=== PATIENT | female | born 1980 | race African-American/Black ===

== ENCOUNTER 2017-06-28 08:55 | Emergency (ER) | payer OTHER ==
--- NOTE | 2017-06-28 09:24 | ER Document Report ---
ED Extremity Problem, Lower - General Chief Complaint: Knee Pain Stated Complaint: FALL KNEE PAIN Time Seen by Provider: 06/28/17 09:14 Notes: 36 yo female c/o pain to right knee x 1 day. pt works at [employer], was stocking shelves, holding a box, slipped on a piece of cardboard and fell on to right knee. painful to walk. no previous injury to knee. denies other injury at this time TRAVEL OUTSIDE OF THE [place] IN LAST 30 DAYS: No - HPI Patient complains to provider of: Injury, Pain Location: Knee - right Occurred: Just prior to arrival Where: Work Onset/Duration: Sudden Quality of pain: Sharp Pain Level: 4 Context: Fell Recent injury: Yes Exacerbated by: Movement - flexion, Walking Relieved by: Nothing - Related Data Allergies/Adverse Reactions: Penicillins Allergy (Verified 06/28/17 08:59) Past Medical History - General Information source: Patient - Social History Smoking Status: Never Smoker Frequency of alcohol use: Occasional Drug Abuse: None Lives with: Family Family History: Reviewed & Not Pertinent - Medical History Medical History: Negative Renal/ Medical History: Denies: Hx Peritoneal Dialysis Review of Systems - Review of Systems Constitutional: No symptoms reported EENT: No symptoms reported Cardiovascular: No symptoms reported Respiratory: No symptoms reported Gastrointestinal: No symptoms reported Genitourinary: No symptoms reported Female Genitourinary: No symptoms reported Musculoskeletal: See HPI Skin: No symptoms reported Hematologic/Lymphatic: No symptoms reported Neurological/Psychological: No symptoms reported Physical Exam - Vital signs Vitals: Temp Pulse Resp BP Pulse Ox 98.4 F 86 20 130/80 H 99 06/28/17 08:59 06/28/17 08:59 06/28/17 08:59 06/28/17 08:59 06/28/17 08:59 Interpretation: Normal - General General appearance: Appears well, Alert - HEENT Head: Normocephalic, Atraumatic Eyes: Normal Pupils: PERRL - Respiratory Respiratory status: No respiratory distress Chest status: Nontender Breath sounds: Normal Chest palpation: Normal - Cardiovascular Rhythm: Regular Heart sounds: Normal auscultation Murmur: No - Abdominal Inspection: Normal Distension: No distension Bowel sounds: Normal Tenderness: Nontender Organomegaly: No organomegaly - Back Back: Normal, Nontender - Extremities General upper extremity: Normal inspection, Nontender, Normal color, Normal ROM , Normal temperature Hip: Normal, Nontender Knee: Tender - tenderness just under patellar, patellar tendon area mildy edematous. + tenderness over anterior tibial tuberosity. lateral and medial compartments nontender., Pain with ROM - pain with flexion, Unable to bear weight - able to bear weight but painful, antalgic gait. No: Ecchymosis, Instability, Joint effusion, Popliteal fossa tender Ankle: Normal, Nontender - Neurological Neuro grossly intact: Yes Cognition: Normal Orientation: AAOx4 [place] Coma Scale Eye Opening: Spontaneous [place] Coma Scale Verbal: Oriented Karen Coma Scale Motor: Obeys Commands [place] Coma Scale Total: 15 Speech: Normal Motor strength normal: LUE, RUE, LLE, RLE Sensory: Normal - Psychological Associated symptoms: Normal affect, Normal mood - Skin Skin Temperature: Warm Skin Moisture: Dry Skin Color: Normal Course - Re-evaluation Re-evalutation: 06/28/17 10:22 xray negative for fracture or effusion. results reviewed with patient. mike applied and crutch instruction given. pt instructed to f/u with pcm if pain persists. pt agreeable with plan and pt stable for discharge - Vital Signs Vital signs: Temp Pulse Resp BP Pulse Ox 98.4 F 86 20 130/80 H 99 06/28/17 08:59 06/28/17 08:59 06/28/17 08:59 06/28/17 08:59 06/28/17 08:59 Procedures - Immobilization right knee Pre-Proc Neuro Vasc Exam: Normal Immobilizer type: Mike wrap Performed by: PCT Post-Proc Neuro Vasc Exam: Normal Alignment checked and good: Yes Discharge - Discharge Clinical Impression: Right knee injury Qualifiers: Encounter type: initial encounter Qualified Code(s): S89.91XA - Unspecified injury of right lower leg, initial encounter Condition: Stable Disposition: HOME, SELF-CARE Instructions: Use of Crutches ([facility]), Ice & Elevation ([facility]), Sprained Knee ([facility]) , Mike Wrap ([facility]), Ibuprofen (General) ([facility]) Additional Instructions: Your xray is negative for fracture wear mike wrap for comfort and support use crutches until able to bear weight without pain follow up with your primary care/orthopedist if pain persists more than 10 days take Ibuprofen as prescribed for inflammation and pain Prescriptions: Ibuprofen [Motrin 800 Mg Tablet] 800 mg PO Q6H #20 tablet Forms: Return to Work
[2017-06-28 10:38] VITALS: BP 123/82
--- NOTE | 2017-06-28 11:02 | RADIOLOGY REPORT (SQ) ---
EXAM DESCRIPTION: KNEE RIGHT 4 VIEWS COMPLETED DATE/TIME: 06/28/2017 10:16 am REASON FOR STUDY: fell on right knee COMPARISON: None. NUMBER OF VIEWS: Four views right knee. LIMITATIONS: None. FINDINGS: There is no acute or significant bone, joint or soft tissue abnormality. OTHER: No other significant finding. IMPRESSION: NORMAL STUDY. TECHNICAL DOCUMENTATION: JOB ID: [id number]
== END 2017-06-28 11:00 | disposition home or self-care (01) ==
LOC: ER 08:55
DX: S89.91XA Unspecified injury of right lower leg, initial encounter (principal); W01.0XXA Fall on same level from slipping, tripping and stumbling without subsequent striking against object, initial encounter; Y92.512 Supermarket, store or market as the place of occurrence of the external cause; Y99.0 Civilian activity done for income or pay; Z88.0 Allergy status to penicillin
CPT/HCPCS: 99283